=== PATIENT | female | born 1965 | race Caucasian/White ===

== ENCOUNTER 2019-06-21 18:34 | Emergency (ER) | payer BC, OTHER ==
[~2019-06-21] VITALS: Ht 175.3 cm; Wt 65.0 kg
[2019-06-21 20:59] VITALS: BP 121/60
[2019-06-21] MEDS ORDERED: ketorolac trometh inj. 60 MG/2 ML VIAL IM ONE (21:50)
== END 2019-06-21 23:07 | disposition home or self-care (01) ==
LOC: ER 18:35
DX: M54.5 Low back pain (principal); G89.29 Other chronic pain; R20.2 Paresthesia of skin; F10.99 Alcohol use, unspecified with unspecified alcohol-induced disorder; Z90.710 Acquired absence of both cervix and uterus; Z88.8 Allergy status to other drugs, medicaments and biological substances; Z91.040 Latex allergy status; Z88.6 Allergy status to analgesic agent; Y90.9 Presence of alcohol in blood, level not specified
CPT/HCPCS: 96372; 99284; J1885; 99283

== ENCOUNTER 2020-02-11 08:24 | Inpatient (IN) | payer BC ==
[2020-02-11] VITALS (20 sets, daily range): BP systolic 92–123; BP diastolic 42–78
[~2020-02-11] VITALS: Ht 175.3 cm; Wt 80.0 kg
[2020-02-11 09:15] LABS: BASOPHILS % (AUTO) 0.3 % (0-1); EOSINOPHILS % (AUTO) 0.2 % (0-6); HEMATOCRIT 45.8 % (35.0-45.0); HEMOGLOBIN 15.3 g/dl (12.0-16.0); LYMPHOCYTES % (AUTO) 11.3 % (21-51); MEAN CORPUSCULAR HEMOGLOBIN 31.3 PG (27.0-31.0); MEAN CORPUSCULAR HGB CONC 33.5 g/dL (33.0-36.5); MEAN CORPUSCULAR VOLUME 93.3 FL (78-98); MEAN PLATELET VOLUME 8.8 FL (7.4-10.4); MONOCYTES # (AUTO) 0.3 X10'3 (0-0.9); MONOCYTES % (AUTO) 3.7 % (2-12); NEUTROPHILS # (AUTO) 7.5 X10'3 (1.8-7.7); NEUTROPHILS % (AUTO) 84.5 % (42-75); PLATELET COUNT 206 X10'3 (140-440); RED BLOOD COUNT 4.91 X10'6 (4.20-5.60); RED CELL DISTRIBUTION WIDTH 13.3 % (11.5-14.5); WHITE BLOOD COUNT 8.9 X10'3 (4.5-11.0)
[2020-02-11 09:29] LABS: ALANINE AMINOTRANSFERASE 28 U/L (12-78); ALBUMIN 4.3 G/DL (3.4-5.0); ALBUMIN/GLOBULIN RATIO 1.5 (1.1-1.5); ALKALINE PHOSPHATASE 56 IU/L (46-116); AMYLASE 95 U/L (25-115); ANION GAP 10 (8-16); ASPARTATE AMINO TRANSFERASE 22 U/L (10-37); BILIRUBIN,TOTAL 0.8 MG/DL (0.1-1.0); BLOOD UREA NITROGEN 21 MG/DL (7-18); BUN/CREATININE RATIO 24.1 (6.6-38.0); CALCIUM 9.3 MG/DL (8.5-10.1); CHLORIDE 104 MMOL/L (99-107); CREATININE 0.87 MG/DL (0.40-0.90); GLUCOSE 177 MG/DL (70-104); POTASSIUM 3.8 MMOL/L (3.5-5.1); SODIUM 139 MMOL/L (135-145); TOTAL CARBON DIOXIDE 25.5 MMOL/L (24-32); TOTAL PROTEIN 7.1 G/DL (6.4-8.2); eGFR 68 ML/MIN
[2020-02-11] MEDS ORDERED: morphine 4 MG/ML inj SYRINge IV ONE (09:30)
[2020-02-11] MEDS ORDERED: ondansetron/PF 4mg/2ml inj IV ONE (09:30)
[2020-02-11 10:12] LABS: C-REACTIVE PROTEIN 0.07 MG/DL (0.0-0.5)
[2020-02-11 11:19] LABS: LIPASE 124 U/L (73-393)
--- NOTE | 2020-02-11 11:27 | NUR ---
Patient ambulated to restroom with steady gait. Urine sample collected and sent to lab.
[2020-02-11] MEDS ORDERED: LEVO100T PO (11:31)
[2020-02-11] MEDS ORDERED: acetaminophen 650mg rectal suppository RC PRN (11:35)
[2020-02-11] MEDS ORDERED: mag hydrox/Alum hydrox/simeth 30ml oral suspension PO PRN (11:35)
[2020-02-11] MEDS ORDERED: morphine 2 MG/ML inj. syringe IV PRN ×2 (11:35)
[2020-02-11] MEDS ORDERED: potassium CL 10mEq/100ml bag 100 ML IV PRN ×2 (11:35)
[2020-02-11] MEDS ORDERED: magnesium 4gm in 100ml NS 100 ML IV PRN (11:35)
[2020-02-11] MEDS ORDERED: potassium Cl 20 mEq SR tablet PO PRN ×2 (11:35)
[2020-02-11] MEDS ORDERED: magnesium 2GM in 50ml NS 50 ML IV PRN (11:35)
[2020-02-11] MEDS ORDERED: bisacodyl 10mg suppository rectal RC PRN (11:35)
[2020-02-11] MEDS ORDERED: magnesium hydroxide 30ml (MOM) UD suspension PO PRN (11:35)
[2020-02-11] MEDS ORDERED: magnesium Cl slow-release 64mg tablet PO PRN (11:35)
[2020-02-11] MEDS ORDERED: acetaminophen 325mg tablet PO PRN (11:35)
[2020-02-11 11:45] LABS: URINE HCG NEGATIVE (NEG)
[2020-02-11 11:47] LABS: CLARITY,URINE SLIGHTLY CLOUDY (Clear); COLOR,URINE YELLOW (Yellow); GLUCOSE, URINE NEGATIVE (Neg); KETONES,URINE >=80 mg/dl (Neg); LEUKOCYTE ESTERASE ,URINE NEGATIVE (Neg); NITRITES, URINE NEGATIVE (Neg); PH,URINE 6.5 (4.8-8.0); PROTEIN,URINE NEGATIVE (Neg); UROBILINOGEN,URINE 0.2 E.U/dL (0.2-1.0)
[2020-02-11 11:49] LABS: PARTIAL THROMBOPLASTIN TIME 23 SECONDS (22-32)
[2020-02-11] MEDS: ondansetron/PF 4mg/2ml inj IV PRN (11:55)
[2020-02-11] MEDS: normal saline 1000ml 1,000 ML IV SCH ×2 (11:56→20:13)
[2020-02-11 12:07] LABS: UA COLLECTION TYPE CLN CATCH MIDSTREAM
[2020-02-11 12:08] LABS: WBC,URINE 0-4 /HPF (0-4)
[2020-02-11 12:09] LABS: OCCULT BLOOD,URINE NEGATIVE (Neg)
[2020-02-11 12:10] LABS: BACTERIA,URINE 2+ /HPF (Neg); MUCUS STRANDS FEW /LPF (Neg); RBC,URINE 0-2 /HPF (0-2); SQUAMOUS EPITHELIAL CELL,UR MANY /LPF (FEW)
--- NOTE | 2020-02-11 12:25 | NUR ---
Received report from TL Joshua in ER., who states patient is scheduled to leave for surgery around 1230-will be transferred to our floor, surgical bed 347B post surgery.
[2020-02-11] MEDS ORDERED: BUPIVAcaine/PF 2.5 mg/ml (0.25%) 30ml vial ONE (13:15)
[2020-02-11] MEDS ORDERED: ceFAZolin 1000mg inj ONE ×2 (13:15→15:30)
--- NOTE | 2020-02-11 13:50 | NUR ---
Pt arrived to the unit, called [phone], Chetan BOOTHE reports pt will be going to surgery in about an hour.
[2020-02-11] MEDS ORDERED: HYDROmorphone inj. 0.5 MG/0.5 ML DISP.SYRIN IV PRN ×3 (14:00→14:15)
[2020-02-11] MEDS ORDERED: famotidine/PF 10 mg/ml inj IV ONE (14:06)
[2020-02-11] MEDS ORDERED: midazolam 2 mg/2 ml injection ONE (14:08)
[2020-02-11] MEDS ORDERED: ringers solution, lacted 1,000 ML IV SCH (14:14)
[2020-02-11] MEDS ORDERED: labetalol 20mg/4ml (5mg/ml) syringe IV PRN (14:15)
[2020-02-11] MEDS ORDERED: proCHLORperazine 10 MG/2 ml inj IV PRN (14:15)
[2020-02-11] MEDS ORDERED: ondansetron/PF 4mg/2ml inj IV PRN (14:15)
[2020-02-11] MEDS ORDERED: meperidine/PF 25mg/ml syringe IV PRN ×3 (14:15)
[2020-02-11] MEDS ORDERED: hydrALAZINE 20mg/ml inj. IV PRN (14:15)
[2020-02-11] MEDS ORDERED: acetaminophen 1,000mg/100ml IV 100 ML IV PRN (14:15)
[2020-02-11] MEDS ORDERED: scopolamine 1.5mg patch.TD72 TD ONE (14:44)
[2020-02-11] MEDS ORDERED: neostigmine methylsulfate 1 MG/ML 10ml vial ONE (15:30)
[2020-02-11] MEDS ORDERED: glycopyrrolate 0.2mg/ml inj ONE (15:30)
[2020-02-11] MEDS ORDERED: ondansetron/PF 4mg/2ml inj ONE (15:30)
[2020-02-11] MEDS ORDERED: sevoflurane 250ml liquid IH ONE (15:30)
[2020-02-11] MEDS ORDERED: LIDOcaine 2% (20mg/ml) 5ml vial ONE (15:49)
[2020-02-11] MEDS ORDERED: rocuronium 10mg/ml inj IV ONE (15:49)
[2020-02-11] MEDS ORDERED: propofol inj 20 ML IV ONE (15:49)
--- NOTE | 2020-02-11 16:49 | NUR ---
RECEIVED FROM OR VIA BED ACCOMPANIED BY ANESTHESIOLOGIST DR HWANG, REPORT GIVEN. PT DROWSY BUT AROUSES EASILY AND DENIES PAIN AT THIS TIME. 20 GAUGE PIV R AC PATENT AND RUNNING LR AT 100 ML/HR. F/C DRAINING CLEAR YELLOW URINE. LG BANDAID X4 TO ABD CDI. ABD SOFT, VSS, SKIN PINK AND WARM, CAP REFILL BRISK, PPULSES PRESENT, RESTING COMFORTABLY.
[2020-02-11] MEDS ORDERED: meperidine/PF 25mg/ml syringe ONE (17:01)
--- NOTE | 2020-02-11 17:45 | NUR ---
Received report from TL Doe in recovery. patient to arrive to room 352.
--- NOTE | 2020-02-11 18:19 | NUR ---
TRANSPORTED VIA BED TO ROOM 352, REPORT GIVEN. PT AWAKE AND ALERT WITH A PAIN LEVEL OF 3 AT THIS TIME. 20 GAUGE PIV R AC PATENT AND RUNNING LR AT 100 ML/HR. F/C DRAINING CLEAR YELLOW URINE. LG BANDAID X4 TO ABD CDI. ABD SOFT, VSS, SKIN PINK AND WARM, CAP REFILL BRISK, PPULSES PRESENT, TOLERATING FLUIDS, RESTING COMFORTABLY.
--- NOTE | 2020-02-11 18:36 | NUR ---
Problems reprioritized. Patient report given, questions answered & plan of care reviewed with TL Dean.
[2020-02-11] MEDS: K and/or MAG REPLACEMENT MC SCH (19:19)
[2020-02-11] MEDS: HYDROmorphone 1 mg/ml syringe IV PRN ×2 (20:13→23:45)
[2020-02-11] MEDS ORDERED: temazepam 15mg capsule PO PRN (21:00)
[2020-02-12] VITALS: BP 99/50
[2020-02-12 04:00] VITALS: BP 98/52
[2020-02-12] MEDS: HYDROmorphone 1 mg/ml syringe IV PRN ×4 (04:08→18:58)
[2020-02-12 05:17] LABS: BASOPHILS % (AUTO) 0.2 % (0-1); EOSINOPHILS % (AUTO) 0 % (0-6); HEMATOCRIT 39.2 % (35.0-45.0); LYMPHOCYTES # (AUTO) 0.9 X10'3 (1.1-4.8); LYMPHOCYTES % (AUTO) 8.2 % (21-51); MEAN CORPUSCULAR HEMOGLOBIN 31.1 PG (27.0-31.0); MEAN CORPUSCULAR HGB CONC 33.2 g/dL (33.0-36.5); MEAN CORPUSCULAR VOLUME 93.8 FL (78-98); MEAN PLATELET VOLUME 8.6 FL (7.4-10.4); MONOCYTES # (AUTO) 0.7 X10'3 (0-0.9); NEUTROPHILS # (AUTO) 9.6 X10'3 (1.8-7.7); NEUTROPHILS % (AUTO) 85.6 % (42-75); PLATELET COUNT 171 X10'3 (140-440); RED BLOOD COUNT 4.18 X10'6 (4.20-5.60); WHITE BLOOD COUNT 11.2 X10'3 (4.5-11.0)
[2020-02-12 05:23] LABS: PARTIAL THROMBOPLASTIN TIME 27 SECONDS (22-32)
[2020-02-12] MEDS: normal saline 1000ml 1,000 ML IV SCH ×2 (05:25→15:02)
[2020-02-12 05:30] LABS: ALANINE AMINOTRANSFERASE 23 U/L (12-78); ALBUMIN 3.2 G/DL (3.4-5.0); ALBUMIN/GLOBULIN RATIO 1.4 (1.1-1.5); ALKALINE PHOSPHATASE 44 IU/L (46-116); ANION GAP 4 (8-16); ASPARTATE AMINO TRANSFERASE 13 U/L (10-37); BILIRUBIN,TOTAL 0.7 MG/DL (0.1-1.0); BLOOD UREA NITROGEN 14 MG/DL (7-18); BUN/CREATININE RATIO 16.5 (6.6-38.0); CALCIUM 7.9 MG/DL (8.5-10.1); CHLORIDE 106 MMOL/L (99-107); CREATININE 0.85 MG/DL (0.40-0.90); GLUCOSE 134 MG/DL (70-104); MAGNESIUM 1.8 MG/DL (1.5-2.4); PHOSPHORUS 3.5 MG/DL (2.3-4.5); POTASSIUM 3.9 MMOL/L (3.5-5.1); SODIUM 138 MMOL/L (135-145); TOTAL CARBON DIOXIDE 28.4 MMOL/L (24-32); TOTAL PROTEIN 5.5 G/DL (6.4-8.2); eGFR 69 ML/MIN
--- NOTE | 2020-02-12 05:30 | NUR ---
Scopolamine patch removed from left eat this morning. Patient stated it is making her mouth dry.
[2020-02-12 06:00] VITALS: BP_SYST 101; BP_SYST 87; BP_DIAS 47; BP_DIAS 68
--- NOTE | 2020-02-12 06:47 | NUR ---
Patient in room [facility]. I have received report from Dianne BOOTHE and had the opportunity to ask questions and assume patient care.
[2020-02-12] MEDS: levoTHYROXINE 100mcg tablet PO SCH (07:48)
[2020-02-12] MEDS: K and/or MAG REPLACEMENT MC SCH ×2 (07:55→20:00)
[2020-02-12] MEDS: ondansetron/PF 4mg/2ml inj IV PRN (11:30)
[2020-02-12 11:36] VITALS: BP 101/41
[2020-02-12] MEDS: metoclopramide 5 mg/ml inj IV PRN (14:56)
--- NOTE | 2020-02-12 18:23 | NUR ---
Problems reprioritized. Patient report given, questions answered & plan of care reviewed with Jerica BOOTHE.
--- NOTE | 2020-02-12 18:26 | NUR ---
Patient in room [facility]. I have received report from TL Stuart and had the opportunity to ask questions and assume patient care. Addendum: 02/12/20 at 1826 by Sheela Avilez RN Amended: Links added.
--- NOTE | 2020-02-12 18:42 | NUR ---
Student documentation: I have reviewed and all interventions, assessments performed and documented by Laura Student Nurse . Student Medication Administration: For this medication-pass time frame, all medication were reviewed, dispensed, administered and documented per hospital policy by Laura Student Nurse.
[2020-02-12 19:24] VITALS: BP 116/58
[2020-02-13] VITALS: BP 106/49
[2020-02-13] MEDS: normal saline 1000ml 1,000 ML IV SCH ×2 (00:31→10:55)
[2020-02-13] MEDS: ondansetron/PF 4mg/2ml inj IV PRN (05:41)
[2020-02-13 06:04] LABS: PARTIAL THROMBOPLASTIN TIME 28 SECONDS (22-32)
[2020-02-13 06:05] LABS: BASOPHILS % (AUTO) 0.4 % (0-1); EOSINOPHILS % (AUTO) 0.5 % (0-6); HEMATOCRIT 37.9 % (35.0-45.0); HEMOGLOBIN 12.6 g/dl (12.0-16.0); LYMPHOCYTES # (AUTO) 1.3 X10'3 (1.1-4.8); LYMPHOCYTES % (AUTO) 16.1 % (21-51); MEAN CORPUSCULAR HEMOGLOBIN 31.4 PG (27.0-31.0); MEAN CORPUSCULAR HGB CONC 33.2 g/dL (33.0-36.5); MEAN CORPUSCULAR VOLUME 94.4 FL (78-98); MONOCYTES # (AUTO) 0.5 X10'3 (0-0.9); MONOCYTES % (AUTO) 6.6 % (2-12); NEUTROPHILS # (AUTO) 6.1 X10'3 (1.8-7.7); NEUTROPHILS % (AUTO) 76.4 % (42-75); PLATELET COUNT 149 X10'3 (140-440); RED BLOOD COUNT 4.02 X10'6 (4.20-5.60); WHITE BLOOD COUNT 7.9 X10'3 (4.5-11.0)
[2020-02-13 06:10] LABS: ALANINE AMINOTRANSFERASE 21 U/L (12-78); ALBUMIN 3.1 G/DL (3.4-5.0); ALBUMIN/GLOBULIN RATIO 1.3 (1.1-1.5); ALKALINE PHOSPHATASE 42 IU/L (46-116); ANION GAP 5 (8-16); ASPARTATE AMINO TRANSFERASE 16 U/L (10-37); BILIRUBIN,TOTAL 0.6 MG/DL (0.1-1.0); BLOOD UREA NITROGEN 10 MG/DL (7-18); CALCIUM 7.9 MG/DL (8.5-10.1); CHLORIDE 106 MMOL/L (99-107); CREATININE 0.77 MG/DL (0.40-0.90); GLUCOSE 82 MG/DL (70-104); MAGNESIUM 1.9 MG/DL (1.5-2.4); PHOSPHORUS 2.3 MG/DL (2.3-4.5); POTASSIUM 3.3 MMOL/L (3.5-5.1); SODIUM 142 MMOL/L (135-145); TOTAL PROTEIN 5.4 G/DL (6.4-8.2); eGFR 78 ML/MIN
--- NOTE | 2020-02-13 06:24 | NUR ---
Problems reprioritized. Patient report given, questions answered & plan of care reviewed with TL Swanson.
[2020-02-13 07:00] VITALS: BP 121/55
[2020-02-13] MEDS: levoTHYROXINE 100mcg tablet PO SCH (08:00)
[2020-02-13] MEDS: metoclopramide 5 mg/ml inj IV PRN (09:31)
[2020-02-13 11:00] VITALS: BP 122/68
--- NOTE | 2020-02-13 14:36 | NUR ---
Dr. Cali made rounds, he said that patient may go home today, follow up in [address] Benton, hospitalist in charge was paged to notify him about this.
[2020-02-13] MEDS ORDERED: ONDA4TAB6 PO (15:01)
[2020-02-13] MEDS ORDERED: HYDR-4383 PO (15:01)
--- NOTE | 2020-02-13 16:48 | NUR ---
PATIENT STABLE AND APPROPRIATE FOR DISCHARGE, IV TAKEN OUT, MEDS E-SCRIPTED TO PREFERRED PHARMACY, EDUCATION GIVEN, ALL BELONGINGS SENT WITH PATIENT, PATIENT TAKEN TO LOBBY BY WHEEL CHAIR TO AND AWAITING CAR WHERE FAMILY MEMBER WILL TAKE THE PATIENT HOME
== END 2020-02-13 16:49 | disposition home or self-care (01) | DRG 337 ==
LOC: ER 08:25 → ED HOLD 11:32 → SUR 3N 13:30
PROVIDERS: ADMIT Family Medicine; ATTEND Family Medicine
PROC: 0DNW4ZZ Release Peritoneum, Percutaneous Endoscopic Approach (ICD-10-PCS; principal; 2020-02-11 15:30)
DX: K46.0 Unspecified abdominal hernia with obstruction, without gangrene (principal); J38.00 Paralysis of vocal cords and larynx, unspecified; E03.9 Hypothyroidism, unspecified; J45.909 Unspecified asthma, uncomplicated; Z90.710 Acquired absence of both cervix and uterus; Z88.8 Allergy status to other drugs, medicaments and biological substances; Z91.040 Latex allergy status; Z90.49 Acquired absence of other specified parts of digestive tract
CPT/HCPCS: 96374; 96375; 99285; Z7506; Z7508; 36415; 71045; 74176; 80053; 81001; 81025; 82150; 82948; 83690; 83735; 84100; 84443; 85025; 85610; 85730; 86140; 87081; 93005; A4215; A4618; A7000; C1758; G0378; J0690; J1170; J2001; J2175; J2250; J2270; J2405; J2704; J2710; J2765; J3480; J3490; J7030; J7120

== ENCOUNTER 2021-06-19 08:55 | Inpatient (IN) | payer BC ==
[~2021-06-19] VITALS: Ht 175.3 cm; Wt 65.0 kg
[~2021-06-19 08:55] MED LIST: HYDR-4383 PO; LEVO100T PO; ONDA4TAB6 PO
[2021-06-19] MEDS ORDERED: ondansetron 4mg rapidly disintigrating tab PO ONE (09:10)
[2021-06-19] MEDS ORDERED: morphine 4 MG/ML inj SYRINge IV ONE (09:15)
[2021-06-19] MEDS ORDERED: normal saline 1000ML IV soln IVB ONE (09:15)
[2021-06-19] MEDS ORDERED: ondansetron/PF 4mg/2ml inj IV ONE (09:15)
[2021-06-19] MEDS ORDERED: iohexol 300mg/ml 100ml inj. ONE (09:46)
[2021-06-19] MEDS ORDERED: proCHLORperazine 10 MG/2 ml inj IV PRN (09:55)
[2021-06-19 09:59] LABS: BASOPHILS # (AUTO) 0.1 X10'3 (0-0.2); BASOPHILS % (AUTO) 1.4 % (0-1); EOSINOPHILS % (AUTO) 1.1 % (0-6); HEMATOCRIT 42.3 % (35.0-45.0); HEMOGLOBIN 14.7 g/dl (12.0-16.0); LYMPHOCYTES % (AUTO) 24.7 % (21-51); MEAN CORPUSCULAR HEMOGLOBIN 32.2 PG (27.0-31.0); MEAN CORPUSCULAR HGB CONC 34.8 g/dL (33.0-36.5); MEAN CORPUSCULAR VOLUME 92.5 FL (78-98); MEAN PLATELET VOLUME 8.6 FL (7.4-10.4); MONOCYTES # (AUTO) 0.2 X10'3 (0-0.9); MONOCYTES % (AUTO) 5.3 % (2-12); NEUTROPHILS # (AUTO) 2.8 X10'3 (1.8-7.7); NEUTROPHILS % (AUTO) 67.5 % (42-75); PLATELET COUNT 179 X10'3 (140-440); RED BLOOD COUNT 4.57 X10'6 (4.20-5.60); RED CELL DISTRIBUTION WIDTH 13.3 % (11.5-14.5); WHITE BLOOD COUNT 4.2 X10'3 (4.5-11.0)
[2021-06-19 10:16] LABS: ALANINE AMINOTRANSFERASE 31 U/L (12-78); ALBUMIN 4.3 G/DL (3.4-5.0); ALBUMIN/GLOBULIN RATIO 1.6 (1.1-1.5); ALKALINE PHOSPHATASE 56 IU/L (46-116); ANION GAP 8 (8-16); ASPARTATE AMINO TRANSFERASE 19 U/L (10-37); BILIRUBIN,TOTAL 0.9 MG/DL (0.1-1.0); BLOOD UREA NITROGEN 21 MG/DL (7-18); BUN/CREATININE RATIO 23.1 (6.6-38.0); CHLORIDE 105 MMOL/L (99-107); CREATININE 0.91 MG/DL (0.40-0.90); GLUCOSE 97 MG/DL (70-104); POTASSIUM 3.8 MMOL/L (3.5-5.1); SODIUM 140 MMOL/L (135-145); TOTAL CARBON DIOXIDE 27.4 MMOL/L (24-32); eGFR 64 ML/MIN
--- NOTE | 2021-06-19 10:30 | NUR ---
Returned from CT. C/O abd pain L LQ.
[2021-06-19 10:58] LABS: CLARITY,URINE SLIGHTLY CLOUDY (Clear); COLOR,URINE YELLOW (Yellow); GLUCOSE, URINE NEGATIVE (Neg); KETONES,URINE NEGATIVE (Neg); LEUKOCYTE ESTERASE ,URINE NEGATIVE (Neg); NITRITES, URINE NEGATIVE (Neg); OCCULT BLOOD,URINE NEGATIVE (Neg); PROTEIN,URINE NEGATIVE (Neg); UROBILINOGEN,URINE 0.2 E.U/dL (0.2-1.0)
[2021-06-19 11:05] LABS: UA COLLECTION TYPE NON-SPECIFIED
[2021-06-19 11:07] LABS: MUCUS STRANDS MANY /LPF (Neg); SQUAMOUS EPITHELIAL CELL,UR MANY /LPF (FEW)
[2021-06-19 11:08] LABS: RBC,URINE 0-2 /HPF (0-2); WBC,URINE 0-4 /HPF (0-4)
[2021-06-19 11:09] LABS: BACTERIA,URINE 2+ /HPF (Neg); TRANSITIONAL EPI CELLS,URINE FEW /HPF
--- NOTE | 2021-06-19 11:30 | NUR ---
Up to void. Pt stated that everytime she moves she becomes nauseated. + nausea.
[2021-06-19] MEDS ORDERED: morphine 2 MG/ML inj. syringe IV PRN ×2 (12:10)
[2021-06-19] MEDS ORDERED: mag hydrox/Alum hydrox/simeth 30ml oral suspension PO PRN (12:10)
[2021-06-19] MEDS ORDERED: acetaminophen 325mg tablet PO PRN (12:10)
[2021-06-19] MEDS ORDERED: HYDROcodone/acetaminophen 5mg/325mg tablet PO PRN (12:10)
[2021-06-19] MEDS ORDERED: magnesium hydroxide 30ml (MOM) UD suspension PO PRN (12:10)
[2021-06-19] MEDS ORDERED: HYDROcodone/acetaminophen 10/325mg tab PO PRN (12:10)
[2021-06-19] MEDS ORDERED: metoclopramide 5 mg/ml inj IV PRN (12:10)
[2021-06-19] MEDS: dextrose 5%-1/2 normal saline 1,000 ML IV SCH ×2 (13:23→23:41)
--- NOTE | 2021-06-19 15:34 | NUR ---
REPORT RECEIVED FROM ED. AWAITING PATIENT ARRIVAL.
--- NOTE | 2021-06-19 15:34 | NUR ---
Report given to TL Flores.
[2021-06-19 16:00] VITALS: BP 114/70
[2021-06-19] MEDS: acetaminophen 325mg tablet PO PRN (16:05)
--- NOTE | 2021-06-19 18:47 | NUR ---
REPORT GIVEN TO ANEESH MELENDREZ RN, ALL QUESTIONS ANSWERED. SURGEON ROUNDED ON PT PRIOR TO SHIFT CHANGE. MORPHINE GIVEN X 1.
--- NOTE | 2021-06-19 18:50 | NUR ---
Patient in room [facility]. I have received report from RAGHAVENDRA BOOTHE and had the opportunity to ask questions and assume patient care.
[2021-06-19 20:00] VITALS: BP 109/59
[2021-06-19] MEDS: ondansetron/PF 4mg/2ml inj IV PRN (20:34)
[2021-06-19] MEDS: docusate sod 100mg capsule PO SCH (21:15)
[2021-06-19] MEDS: diatr meglu/diatrizoate 30ml oral sol.-(3 dose) bottle PO SCH (21:17)
[2021-06-20] MEDS: ondansetron/PF 4mg/2ml inj IV PRN (05:14)
--- NOTE | 2021-06-20 06:30 | NUR ---
Problems reprioritized. Patient report given, questions answered & plan of care reviewed with CLARIBEL BOOTHE.
[2021-06-20 06:35] LABS: ALBUMIN 3.4 G/DL (3.4-5.0); ANION GAP 2 (8-16); BLOOD UREA NITROGEN 10 MG/DL (7-18); BUN/CREATININE RATIO 13.2 (6.6-38.0); CALCIUM 8.4 MG/DL (8.5-10.1); CHLORIDE 107 MMOL/L (99-107); CREATININE 0.76 MG/DL (0.40-0.90); GLUCOSE 100 MG/DL (70-104); POTASSIUM 3.6 MMOL/L (3.5-5.1); SODIUM 138 MMOL/L (135-145); TOTAL CARBON DIOXIDE 28.6 MMOL/L (24-32); eGFR 79 ML/MIN
[2021-06-20 06:37] LABS: BASOPHILS % (AUTO) 0.6 % (0-1); EOSINOPHILS # (AUTO) 0.1 X10'3 (0-0.9); EOSINOPHILS % (AUTO) 1.8 % (0-6); HEMATOCRIT 37.4 % (35.0-45.0); HEMOGLOBIN 13.1 g/dl (12.0-16.0); LYMPHOCYTES # (AUTO) 1.2 X10'3 (1.1-4.8); LYMPHOCYTES % (AUTO) 29.6 % (21-51); MEAN CORPUSCULAR HEMOGLOBIN 32.6 PG (27.0-31.0); MEAN CORPUSCULAR HGB CONC 34.9 g/dL (33.0-36.5); MEAN CORPUSCULAR VOLUME 93.5 FL (78-98); MEAN PLATELET VOLUME 8.4 FL (7.4-10.4); MONOCYTES # (AUTO) 0.3 X10'3 (0-0.9); MONOCYTES % (AUTO) 8.2 % (2-12); NEUTROPHILS # (AUTO) 2.4 X10'3 (1.8-7.7); NEUTROPHILS % (AUTO) 59.8 % (42-75); PLATELET COUNT 159 X10'3 (140-440); RED CELL DISTRIBUTION WIDTH 13.1 % (11.5-14.5)
--- NOTE | 2021-06-20 07:02 | NUR ---
I have received report from TL Winston and had the opportunity to ask questions and assume patient care.
[2021-06-20] MEDS: docusate sod 100mg capsule PO SCH (07:14)
[2021-06-20] MEDS: diatr meglu/diatrizoate 30ml oral sol.-(3 dose) bottle PO SCH ×2 (07:14→10:50)
[2021-06-20] MEDS: acetaminophen 325mg tablet PO PRN (07:18)
[2021-06-20 08:00] VITALS: BP 118/62
--- NOTE | 2021-06-20 09:15 | NUR ---
Malnutrition consult: Pt reports 2-13 lb wt loss with decreased appetite per malnutrition risk screen with RN. Patient's current scaled wt is stable with wt hx in EMR. Pt admit for SBO, currently NPO. Per ED report pt has only been able to sip fluids and tolerate saltine crackers for the last few days. 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 Pt with no documented decrease in muscle strength or edema. Pt currently lacks a minimum of two criteria for malnutrition. Will continue to follow and further monitor qualifying criteria for malnutrition. Addendum: 06/20/21 at [address] Amended: Links added.
--- NOTE | 2021-06-20 10:10 | NUR ---
Report given to TL Beth
[2021-06-20] MEDS: dextrose 5%-1/2 normal saline 1,000 ML IV SCH (10:19)
[2021-06-20 11:00] VITALS: BP 114/73
[2021-06-20] MEDS ORDERED: METO5TAB98 PO (15:40)
--- NOTE | 2021-06-20 17:55 | NUR ---
Pt DC to home with . Pt is A & o x4 and in no apparent distress. 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 Pt verbalizes understanding of ALL DC orders. Pt knows the importance of following up with PCP. Pt's IV removed intact. Pt got dressed and was wheeled to the front where her took her home.
== END 2021-06-20 17:45 | disposition home or self-care (01) | DRG 392 ==
LOC: ER 08:55 → ED HOLD 12:13 → EDBEDREQ 14:31 → SUR 3N 16:14
PROVIDERS: ADMIT Internal Medicine; ATTEND Internal Medicine
PROC: BW211ZZ Computerized Tomography (CT Scan) of Abdomen and Pelvis using Low Osmolar Contrast (ICD-10-PCS; principal; 2021-06-19)
DX: R10.84 Generalized abdominal pain (principal); M48.56XA Collapsed vertebra, not elsewhere classified, lumbar region, initial encounter for fracture; Z20.822 Contact with and (suspected) exposure to COVID-19; E03.9 Hypothyroidism, unspecified; Z88.8 Allergy status to other drugs, medicaments and biological substances; Z88.1 Allergy status to other antibiotic agents; Z91.040 Latex allergy status; Z90.710 Acquired absence of both cervix and uterus; Z86.711 Personal history of pulmonary embolism; Z90.49 Acquired absence of other specified parts of digestive tract; Z85.828 Personal history of other malignant neoplasm of skin
CPT/HCPCS: 36415; 74176; 74177; 80048; 80053; 81001; 83605; 84145; 85025; 87040; 87081; 87635; 96374; 96375; 99285; C9803; G0378; J0780; J2270; J2405; J7030; J7042; Q9963; Q9967

== ENCOUNTER 2023-10-21 09:13 | Emergency (ER) | payer BC ==
[~2023-10-21] VITALS: Ht 175.3 cm; Wt 66.5 kg
[~2023-10-21 09:13] MED LIST changes: -HYDR-4383 PO; -ONDA4TAB6 PO
[2023-10-21 09:19] VITALS: TEMP 98.2
[2023-10-21 10:14] LABS: BASOPHILS % (AUTO) 0.4 % (0-1); EOSINOPHILS # (AUTO) 0.1 X10'3 (0-0.9); EOSINOPHILS % (AUTO) 1.4 % (0-6); HEMATOCRIT 45.4 % (35.0-45.0); HEMOGLOBIN 15.6 g/dl (12.0-16.0); LYMPHOCYTES # (AUTO) 1.4 X10'3 (1.1-4.8); MEAN CORPUSCULAR HEMOGLOBIN 32.2 PG (27.0-31.0); MEAN CORPUSCULAR HGB CONC 34.4 g/dL (33.0-36.5); MEAN CORPUSCULAR VOLUME 93.6 FL (78-98); MEAN PLATELET VOLUME 7.8 FL (7.4-10.4); MONOCYTES # (AUTO) 0.4 X10'3 (0-0.9); MONOCYTES % (AUTO) 6.7 % (2-12); NEUTROPHILS # (AUTO) 4.4 X10'3 (1.8-7.7); NEUTROPHILS % (AUTO) 69.5 % (42-75); PLATELET COUNT 200 X10'3 (140-440); RED BLOOD COUNT 4.85 X10'6 (4.20-5.60); RED CELL DISTRIBUTION WIDTH 13.6 % (11.5-14.5); WHITE BLOOD COUNT 6.3 X10'3 (4.5-11.0)
[2023-10-21 10:31] LABS: ALBUMIN 4.5 G/DL (3.4-5.0); ANION GAP 4 (8-16); BLOOD UREA NITROGEN 11 MG/DL (7-18); BUN/CREATININE RATIO 13.1 (10.0-20.0); CALCIUM 9.3 MG/DL (8.5-10.1); CHLORIDE 103 MMOL/L (99-107); CREATININE 0.84 MG/DL (0.40-0.90); GLUCOSE 99 MG/DL (70-104); POTASSIUM 3.4 MMOL/L (3.5-5.1); SODIUM 138 MMOL/L (135-145); TOTAL CARBON DIOXIDE 31.1 MMOL/L (24-32); eCRCL 75 ML/MIN; eGFR 69 ML/MIN
[2023-10-21] MEDS: normal saline 1000ML IV soln IVB ONE ×2 (10:32→12:10)
[2023-10-21] MEDS ORDERED: iohexol 300mg/ml 100ml inj. ONE (10:37)
[2023-10-21] MEDS: PEG 3350/Na sulf,bicarb,Cl/KCl oral sol 4 liter bottle PO ONE (12:43)
[2023-10-21] MEDS: potassium Cl 20 mEq SR tablet PO STA (12:43)
[2023-10-21] MEDS ORDERED: PYRI60TA2 PO (13:07)
[2023-10-21] MEDS: metoclopramide 5 mg/ml inj IV ONE (13:25)
[2023-10-21 13:38] VITALS: BP 125/80; PULSE 71; RESP 16; O2SAT 100
[2023-10-21] MEDS: dexamethasone 4mg/ml inj IV STA (14:19)
[2023-10-21] MEDS: pyridostigmine br 60mg tablet PO STA (14:37)
== END 2023-10-21 15:45 | disposition home or self-care (01) ==
LOC: ER 09:16
DX: R10.84 Generalized abdominal pain (principal); R11.2 Nausea with vomiting, unspecified; K59.89 Other specified functional intestinal disorders; Z88.8 Allergy status to other drugs, medicaments and biological substances; Z91.040 Latex allergy status; Z88.5 Allergy status to narcotic agent; Z79.899 Other long term (current) drug therapy; Z90.710 Acquired absence of both cervix and uterus
CPT/HCPCS: 36415; 74178; 80048; 85025; 96361; 96374; 96375; 99285; J1100; J2765; J3490; J7030; Q9967

== ENCOUNTER 2025-01-21 18:07 | Emergency (ER) | payer BC ==
[~2025-01-21] VITALS: Ht 175.3 cm; Wt 69.5 kg
[~2025-01-21 18:07] MED LIST changes: +PYRI60TA2 PO
--- NOTE | 2025-01-21 18:39 | RADIOLOGY REPORT ---
EXAMINATION: Abdominal x-rays 2 views CLINICAL HISTORY: ABDOMINAL PAIN, POS OBSTRUCTION COMPARISON: CT CT ABDOMEN PELVIS on DOS: 10/21/23 FINDINGS: No discretely dilated small bowel loops or air-fluid levels appreciated to suggest high-grade bowel o bstruction at this time. Moderate volume stool noted predominantly in the proximal colon. No definite evidence of pneumoperitoneum. IMPRESSION: Overall nonspecific bowel gas pattern without definite evidence to suggest bowel obstruction at this time. If there is persistent clinical concern, CT may be considered to further evaluate.
[2025-01-21 18:43] LABS: MEAN PLATELET VOLUME 8.3 FL (7.4-10.4); RED CELL DISTRIBUTION WIDTH 13.4 % (11.5-14.5)
[2025-01-21 19:07] LABS: CREATININE 0.80 MG/DL (0.40-0.90); TOTAL CARBON DIOXIDE 29.1 MMOL/L (24-32); eCRCL 78 ML/MIN; eGFR 73 ML/MIN
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
[2025-01-21 20:09] LABS: LEUKOCYTE ESTERASE ,URINE TRACE (Neg); NITRITES, URINE NEGATIVE (Neg); OCCULT BLOOD,URINE NEGATIVE (Neg)
[2025-01-21 20:15] LABS: UA COLLECTION TYPE CLN CATCH MIDSTREAM
[2025-01-21 20:16] LABS: URINE HCG NEGATIVE (NEG)
[2025-01-21 20:17] LABS: SQUAMOUS EPITHELIAL CELL,UR MODERATE /LPF (FEW)
[2025-01-21] MEDS: ondansetron 4mg rapidly disintigrating tab PO ONE (20:22)
--- NOTE | 2025-01-21 21:05 | RADIOLOGY REPORT ---
Exam: CT CT ABDOMEN PELVIS History: abd pain COMPARISON: CT CT ABDOMEN PELVIS on DOS: 10/21/23, CT ABDOMEN PELVIS on DOS: 06/20/21, CT ABDOMEN PELVI S on DOS: 06/19/21, CT ABDOMEN PELVIS on DOS: 02/11/20 Technique: Multidetector spiral CT of the abdomen and pelvis was performed from lung bases to pubic s ymphysis. Intravenous contrast was administered during this examination. Portal venous imaging was o btained. Axial, coronal and sagittal multiplanar reformats were performed by the technologist on a [employer] workstation. Radiation Dose : 1. Abdomen/Pelvis: CTDIvol 19 mGy, DLP 885 mGy*cm. Findings: Lower Chest: No acute findings. Partially imaged breast implants. Liver: Normal. Gallbladder and Biliary Tree: Cholecystectomy changes. Pancreas: Unremarkable. Spleen: Unremarkable Adrenal Glands: Unremarkable Kidneys: No obvious obstruction, although the ureters are incompletely visualized due to retroperit cabrera and peritoneal crowding. Punctate stone in the right collecting system. Bladder: Unremarkable. Pelvic Organs: Diminutive or absent uterus. Bowel: Normal caliber without wall thickening. Fecal contents within mid to distal small bowel loop s suggesting slow transit. No evidence of appendicitis. Vasculature: Unremarkable. Lymphadenopathy: No obvious adenopathy. Peritoneum: No ascites, free air, or fluid collection. Abdominal Wall: Ventral postsurgical change. Musculoskeletal: No acute finding. Mild degenerative changes. IMPRESSION: 1. No evidence of upper urinary tract obstruction or other acute abdominopelvic abnormality. 2. Punctate right nephrolith. Radiation optimization: All CT scans at this facility use at least one of these dose optimization graham hniques: automated exposure control mA and/or kV adjustment per patient size (includes targeted exam s where dose is matched to clinical indication) or iterative reconstruction.
[2025-01-21 21:58] VITALS: BP 138/72; PULSE 68; RESP 14; TEMP 98.9; O2SAT 98
== END 2025-01-21 22:03 | disposition home or self-care (01) ==
LOC: ER 18:08
DX: R10.84 Generalized abdominal pain (principal); Z90.710 Acquired absence of both cervix and uterus; Z88.8 Allergy status to other drugs, medicaments and biological substances; Z91.040 Latex allergy status; Z79.899 Other long term (current) drug therapy; Z72.89 Other problems related to lifestyle
CPT/HCPCS: 36415; 74018; 74176; 80053; 81001; 81025; 83690; 85025; 87088; 99284